=== PATIENT | male | born 1955 | race Caucasian/White ===

== ENCOUNTER 2019-03-27 10:29 | Outpatient (CLI) | payer BC ==
--- NOTE | 2019-03-27 10:43 | RAD ---
XR Chest Pa Lat STANDARD HISTORY: Dyspnea on exertion COMPARISON: 04/03/2009 FINDINGS: The heart size enlarged. There is mild prominence of the pulmonary vascularity. No lobar co nsolidation, pneumothoraces or pleural effusions are seen.
== END 2019-03-27 10:30 | disposition home or self-care (01) ==
LOC: BICRAD 10:29
PROVIDERS: ATTEND Family Medicine
DX: R06.09 Other forms of dyspnea (principal)
CPT/HCPCS: 71046

== ENCOUNTER 2019-08-24 09:36 | Outpatient (CLI) | payer MEDICARE, OTHER ==
[2019-08-24 14:52] LABS: #Eosinphils 0.2 thou/uL (0.0-0.7); #Lymphocytes 1.3 thou/uL (1.20-3.40); #Monocytes 0.7 thou/uL (0.11-0.59); #Neutrophils 7.5 thou/uL (1.40-6.50); %Basophils 0.4 % (0.0-1.0); %Eosinophils 2.1 % (0.0-10.0); %Lymphocytes 13.6 % (21.0-51.0); %Neutrophils 76.9 % (42.0-75.0); Hemoglobin 15.8 g/dL (14.0-18.0); Mean Corpuscular Hemoglobin 26.5 pg (27.0-31.0); Mean Corpuscular Volume 82.8 fL (78.0-98.0); Mean Platelet Volume 7.9 fL (7.4-10.4); Platelet Count 204 thou/uL (130-400); RBC Distribution Width 16.4 % (11.5-14.5); Red Blood Cell (RBC) Count 5.95 mill/uL (4.70-6.10); White Blood Cell (WBC) Count 9.8 thou/uL (4.8-10.8)
[2019-08-24 15:11] LABS: Anion Gap 13 mmol/L (10-20); BUN (Urea Nitrogen) 15 mg/dL (8.4-25.7); Calc. Creatinine Clearance 0 mL/min (70-130); Calcium 9.5 mg/dL (7.8-10.44); Carbon Dioxide 28 mmol/L (23-31); Chloride 103 mmol/L (98-107); Estimated GFR-MDRD 56; Glucose 131 mg/dL (80-115); Potassium 4.1 mmol/L (3.5-5.1); Sodium 140 mmol/L (136-145)
[2019-08-25 11:10] LABS: SARS-CoV-2 MS2 Positive; SARS-CoV-2 N Gene Negative; SARS-CoV-2 S Gene Negative; SARS-CoV-2 orf1ab Negative
== END 2019-08-24 09:37 | disposition home or self-care (01) ==
LOC: LABBT 09:36
PROVIDERS: ATTEND Internal Medicine Cardiovascular Disease
DX: Z01.812 Encounter for preprocedural laboratory examination (principal); Z11.59 Encounter for screening for other viral diseases; I48.91 Unspecified atrial fibrillation
CPT/HCPCS: 80048; 85025; U0003; 87635

== ENCOUNTER 2019-08-27 05:55 | Day surgery (SDC) | payer MEDICARE ==
[2019-08-24 14:16] VITALS: BMI 62.6
[2019-08-27] MEDS ORDERED: Ketamine 50 MG/ML (10ML VIAL) ONE (07:17)
--- NOTE | 2019-08-27 09:25 | OP ---
DATE OF PROCEDURE: 08/27/2019 PREOPERATIVE DIAGNOSIS: Atrial fibrillation. POSTOPERATIVE DIAGNOSIS: Sinus rhythm. PROCEDURE PERFORMED: Synchronized cardioversion. COMPLICATIONS: None. ANESTHESIA: Conscious sedation was performed with propofol. DESCRIPTION OF PROCEDURE: The patient was consented to the procedure. Conscious sedation was performed with propofol. The patient underwent successful synchronized cardioversion x3 at 150, 200, and 250 joules. After 250-joule synchronized cardioversion, successful cardioversion noted. IMPRESSION: Successful synchronized cardioversion. Job ID: [id number]
[2019-08-27] MEDS ORDERED: PROPOFOL 200 MG/20 ML VIAL ONE (12:34)
== END 2019-08-27 09:59 | disposition home or self-care (01) ==
LOC: CCL 05:55
PROVIDERS: ATTEND Internal Medicine Cardiovascular Disease
PROC: 5A2204Z Restoration of Cardiac Rhythm, Single (ICD-10-PCS; principal; 2019-08-27)
DX: I48.19 Other persistent atrial fibrillation (principal); I42.9 Cardiomyopathy, unspecified; I10 Essential (primary) hypertension; E11.9 Type 2 diabetes mellitus without complications; G47.33 Obstructive sleep apnea (adult) (pediatric); Z79.01 Long term (current) use of anticoagulants; Z79.84 Long term (current) use of oral hypoglycemic drugs; Z79.899 Other long term (current) drug therapy; Z88.1 Allergy status to other antibiotic agents; Z88.8 Allergy status to other drugs, medicaments and biological substances
CPT/HCPCS: 92960; J2704

== ENCOUNTER 2020-11-12 14:21 | Inpatient (IN) | payer MEDICARE ==
[~2020-11-12 14:21] MED LIST: Iopamidol-370 76% 500 ML 1 ML ONE
[2020-11-12] MEDS ORDERED: Acetaminophen 500 MG TAB ONE (15:00)
[2020-11-12 15:02] LABS: #Eosinphils 0.2 thou/uL (0.0-0.7); #Lymphocytes 0.6 thou/uL (1.20-3.40); #Monocytes 0.5 thou/uL (0.11-0.59); #Neutrophils 5.3 thou/uL (1.40-6.50); %Basophils 0.2 % (0.0-1.0); %Eosinophils 3.3 % (0.0-10.0); %Lymphocytes 8.8 % (21.0-51.0); %Neutrophils 79.8 % (42.0-75.0); Hemoglobin 13.4 g/dL (14.0-18.0); Mean Corpuscular HGB CONC 33.8 g/dL (32.0-36.0); Mean Corpuscular Hemoglobin 29.4 pg (27.0-31.0); Mean Platelet Volume 6.6 fL (7.4-10.4); Platelet Count 156 thou/uL (130-400); Red Blood Cell (RBC) Count 4.58 mill/uL (4.70-6.10); White Blood Cell (WBC) Count 6.7 thou/uL (4.8-10.8)
[2020-11-12] MEDS ORDERED: Albuterol 200 PUFF (6.7GM INHALER) ONE (15:07)
[2020-11-12 15:23] LABS: ALT (SGPT) 13 U/L (8-55); AST (SGOT) 15 U/L (5-34); Albumin 3.5 g/dL (3.4-4.8); Alkaline Phosphatase 56 U/L (40-110); Anion Gap 15 mmol/L (10-20); BUN (Urea Nitrogen) 19 mg/dL (8.4-25.7); Bilirubin, Total 0.9 mg/dL (0.2-1.2); Calc. Creatinine Clearance 0 mL/min (70-130); Calcium 9.2 mg/dL (7.8-10.44); Carbon Dioxide 27 mmol/L (23-31); Chloride 99 mmol/L (98-107); Globulin 3.8 g/dL (2.4-3.5); Glucose 136 mg/dL (80-115); Potassium 3.9 mmol/L (3.5-5.1); Protein, Total 7.3 g/dL (5.8-8.1); Sodium 137 mmol/L (136-145)
[2020-11-12 16:11] LABS: SARS-CoV-2 NAA Rapid Test DETECTED (NotDetected)
[2020-11-12] MEDS ORDERED: Ondansetron ODT 4 MG TAB PO PRN (16:12)
[2020-11-12] MEDS ORDERED: Loperamide HCl 2 MG CAP PO PRN ×2 (16:12)
[2020-11-12] MEDS ORDERED: Ondansetron PF 4 MG/2 ML Vial IVP PRN (16:12)
[2020-11-12] MEDS ORDERED: Acetaminophen 650 MG Suppository PR PRN (16:12)
[2020-11-12] MEDS ORDERED: Melatonin 3 MG TAB PO PRN (16:15)
[2020-11-12] MEDS ORDERED: Dextrose 50% Abboject 50 ML SYRINGE SLOW IVP PRN (16:16)
[2020-11-12] MEDS ORDERED: Dextrose 5% in Water 1,000 ML IV PRN (16:16)
[2020-11-12] MEDS ORDERED: HumaLOG 300 UNITS/3 ML VIAL SC PRN (16:16)
[2020-11-12] MEDS ORDERED: Sodium Chloride 0.9% 1,000 ML IV SCH (16:30)
[2020-11-12] MEDS ORDERED: REMDESIVIR 200 MG in Sodium Chloride 0.9% 250 ML 210 ML IV SCH (20:00)
[2020-11-12 20:27] VITALS: BMI 63.0
[2020-11-12] MEDS: Dexamethasone 10 MG/ML VIAL SLOW IVP SCH (22:44)
[2020-11-12] MEDS: Famotidine 20 MG TAB PO SCH (22:59)
[2020-11-12] MEDS: Apixaban 5 MG TAB PO SCH (22:59)
[2020-11-12] MEDS: cefTRIAXone\\ROCEPHIN 1 GM in Sodium Chloride 0.9% 100 ML IVPB SCH (23:00)
[2020-11-12] MEDS: Guaifenesin DM 100-10/5 ML UDCUP PO PRN (23:01)
[2020-11-12] MEDS: Acetaminophen 325 MG TAB PO PRN (23:01)
[2020-11-12] MEDS: Benzonatate 100 MG CAP PO PRN (23:01)
[2020-11-13] MEDS: Azithromycin 500 MG in Sodium Chloride 0.9% 250 ML 250 ML IVPB SCH ×2 (00:11→19:59)
[2020-11-13] MEDS: Acetaminophen 325 MG TAB PO PRN ×2 (04:22→09:35)
[2020-11-13] MEDS: Guaifenesin DM 100-10/5 ML UDCUP PO PRN (04:22)
[2020-11-13] MEDS: HumaLOG 300 UNITS/3 ML VIAL SC PRN ×3 (04:28→16:31)
[2020-11-13 06:07] LABS: #Lymphocytes 0.3 thou/uL (1.20-3.40); #Monocytes 0.2 thou/uL (0.11-0.59); #Neutrophils 5.8 thou/uL (1.40-6.50); %Basophils 0.1 % (0.0-1.0); %Eosinophils 0.6 % (0.0-10.0); %Monocytes 2.6 % (0.0-10.0); %Neutrophils 91.8 % (42.0-75.0); Hemoglobin 12.8 g/dL (14.0-18.0); Mean Corpuscular HGB CONC 33.6 g/dL (32.0-36.0); Mean Corpuscular Hemoglobin 29.3 pg (27.0-31.0); Mean Corpuscular Volume 87.1 fL (78.0-98.0); Mean Platelet Volume 6.7 fL (7.4-10.4); Platelet Count 154 thou/uL (130-400); RBC Distribution Width 13.1 % (11.5-14.5); Red Blood Cell (RBC) Count 4.36 mill/uL (4.70-6.10); White Blood Cell (WBC) Count 6.3 thou/uL (4.8-10.8)
[2020-11-13 06:32] LABS: ALT (SGPT) 12 U/L (8-55); AST (SGOT) 17 U/L (5-34); Albumin 3.4 g/dL (3.4-4.8); Alkaline Phosphatase 53 U/L (40-110); Anion Gap 12 mmol/L (10-20); BUN (Urea Nitrogen) 19 mg/dL (8.4-25.7); Bilirubin, Total 0.5 mg/dL (0.2-1.2); Calc. Creatinine Clearance 153 mL/min (70-130); Carbon Dioxide 26 mmol/L (23-31); Chloride 101 mmol/L (98-107); Globulin 3.7 g/dL (2.4-3.5); Glucose 182 mg/dL (80-115); Protein, Total 7.1 g/dL (5.8-8.1); Sodium 135 mmol/L (136-145)
[2020-11-13] MEDS: Famotidine 20 MG TAB PO SCH ×2 (07:38→19:58)
[2020-11-13] MEDS: Apixaban 5 MG TAB PO SCH ×2 (07:39→19:59)
[2020-11-13] MEDS ORDERED: Dexamethasone 10 MG/ML VIAL SLOW IVP SCH (09:00)
[2020-11-13] MEDS: Benzonatate 100 MG CAP PO PRN (09:36)
[2020-11-13] MEDS: Dexamethasone 10 MG/ML VIAL SLOW IVP SCH ×2 (09:36→19:59)
[2020-11-13] MEDS: GUAIFENESIN DM SF 5 ML UDCUP PO PRN (13:50)
[2020-11-13] MEDS: Albuterol 200 PUFF (6.7GM INHALER) INH PRN (13:51)
[2020-11-13] MEDS: cefTRIAXone\\ROCEPHIN 1 GM in Sodium Chloride 0.9% 100 ML IVPB SCH (19:57)
[2020-11-13] MEDS: REMDESIVIR 100 MG in Sodium Chloride 0.9% 250 ML 230 ML IV SCH (20:33)
[2020-11-14 06:26] LABS: #Lymphocytes 0.4 thou/uL (1.20-3.40); #Monocytes 0.3 thou/uL (0.11-0.59); #Neutrophils 9.2 thou/uL (1.40-6.50); %Basophils 0.4 % (0.0-1.0); %Eosinophils 0.1 % (0.0-10.0); %Lymphocytes 3.6 % (21.0-51.0); %Monocytes 2.9 % (0.0-10.0); %Neutrophils 93.1 % (42.0-75.0); Hemoglobin 13.4 g/dL (14.0-18.0); Mean Corpuscular HGB CONC 32.9 g/dL (32.0-36.0); Mean Corpuscular Hemoglobin 28.8 pg (27.0-31.0); Mean Corpuscular Volume 87.6 fL (78.0-98.0); Mean Platelet Volume 6.9 fL (7.4-10.4); Platelet Count 176 thou/uL (130-400); RBC Distribution Width 13.1 % (11.5-14.5); Red Blood Cell (RBC) Count 4.67 mill/uL (4.70-6.10); White Blood Cell (WBC) Count 9.8 thou/uL (4.8-10.8)
[2020-11-14 06:53] LABS: ALT (SGPT) 15 U/L (8-55); AST (SGOT) 20 U/L (5-34); Albumin 3.4 g/dL (3.4-4.8); Alkaline Phosphatase 50 U/L (40-110); Anion Gap 16 mmol/L (10-20); BUN (Urea Nitrogen) 28 mg/dL (8.4-25.7); Bilirubin, Total 0.3 mg/dL (0.2-1.2); Calc. Creatinine Clearance 152 mL/min (70-130); Carbon Dioxide 22 mmol/L (23-31); Chloride 103 mmol/L (98-107); Globulin 3.7 g/dL (2.4-3.5); Glucose 181 mg/dL (80-115); Potassium 3.9 mmol/L (3.5-5.1); Protein, Total 7.1 g/dL (5.8-8.1); Sodium 137 mmol/L (136-145)
[2020-11-14] MEDS ORDERED: Levothyroxine Sodium 75 MCG TAB PO SCH (08:15)
[2020-11-14] MEDS: Famotidine 20 MG TAB PO SCH ×2 (09:51→20:10)
[2020-11-14] MEDS: Amiodarone 200 MG TAB PO SCH (09:51)
[2020-11-14] MEDS: Empagliflozin 25 MG TAB PO SCH (09:51)
[2020-11-14] MEDS: Spironolactone 25 MG TAB PO SCH (09:51)
[2020-11-14] MEDS: Apixaban 5 MG TAB PO SCH ×2 (09:51→20:09)
[2020-11-14] MEDS: Dexamethasone 10 MG/ML VIAL SLOW IVP SCH ×2 (09:52→20:09)
[2020-11-14] MEDS: Chlorthalidone 25 MG TAB PO SCH (09:52)
[2020-11-14] MEDS: Benzonatate 100 MG CAP PO PRN (10:54)
[2020-11-14] MEDS: Acetaminophen 325 MG TAB PO PRN (10:54)
[2020-11-14] MEDS: Albuterol 200 PUFF (6.7GM INHALER) INH PRN (10:55)
[2020-11-14] MEDS: HumaLOG 300 UNITS/3 ML VIAL SC PRN ×2 (11:01→15:30)
[2020-11-14] MEDS: GUAIFENESIN DM SF 5 ML UDCUP PO PRN (12:37)
[2020-11-14] MEDS: Terazosin HCl 5 MG CAP PO SCH (20:09)
[2020-11-14] MEDS: Amlodipine 10 MG TAB PO SCH (20:10)
[2020-11-14] MEDS: cefTRIAXone\\ROCEPHIN 1 GM in Sodium Chloride 0.9% 100 ML IVPB SCH (20:10)
[2020-11-14] MEDS: Azithromycin 500 MG in Sodium Chloride 0.9% 250 ML 250 ML IVPB SCH (20:10)
[2020-11-14] MEDS: REMDESIVIR 100 MG in Sodium Chloride 0.9% 250 ML 230 ML IV SCH (20:16)
[2020-11-15] MEDS: Levothyroxine Sodium 75 MCG TAB PO SCH (05:01)
[2020-11-15 06:35] LABS: #Basophils 0.1 thou/uL (0.0-0.2); #Lymphocytes 0.3 thou/uL (1.20-3.40); #Monocytes 0.3 thou/uL (0.11-0.59); #Neutrophils 8.9 thou/uL (1.40-6.50); %Basophils 0.7 % (0.0-1.0); %Eosinophils 0.2 % (0.0-10.0); %Lymphocytes 2.9 % (21.0-51.0); %Monocytes 3.6 % (0.0-10.0); %Neutrophils 92.7 % (42.0-75.0); Hemoglobin 13.8 g/dL (14.0-18.0); Mean Corpuscular HGB CONC 33.1 g/dL (32.0-36.0); Mean Corpuscular Volume 87.7 fL (78.0-98.0); Mean Platelet Volume 7.2 fL (7.4-10.4); Platelet Count 202 thou/uL (130-400); RBC Distribution Width 13.4 % (11.5-14.5); Red Blood Cell (RBC) Count 4.75 mill/uL (4.70-6.10); White Blood Cell (WBC) Count 9.6 thou/uL (4.8-10.8)
[2020-11-15 06:58] LABS: ALT (SGPT) 15 U/L (8-55); AST (SGOT) 25 U/L (5-34); Albumin 3.5 g/dL (3.4-4.8); Alkaline Phosphatase 55 U/L (40-110); Anion Gap 14 mmol/L (10-20); BUN (Urea Nitrogen) 33 mg/dL (8.4-25.7); Bilirubin, Total 0.4 mg/dL (0.2-1.2); Calc. Creatinine Clearance 138 mL/min (70-130); Calcium 8.8 mg/dL (7.8-10.44); Carbon Dioxide 28 mmol/L (23-31); Chloride 102 mmol/L (98-107); Globulin 3.2 g/dL (2.4-3.5); Glucose 174 mg/dL (80-115); Potassium 4.2 mmol/L (3.5-5.1); Protein, Total 6.7 g/dL (5.8-8.1); Sodium 140 mmol/L (136-145)
[2020-11-15] MEDS: Spironolactone 25 MG TAB PO SCH (08:57)
[2020-11-15] MEDS: Empagliflozin 25 MG TAB PO SCH (08:57)
[2020-11-15] MEDS: Chlorthalidone 25 MG TAB PO SCH (08:57)
[2020-11-15] MEDS: Apixaban 5 MG TAB PO SCH ×2 (08:57→20:03)
[2020-11-15] MEDS: Amiodarone 200 MG TAB PO SCH (08:57)
[2020-11-15] MEDS: Famotidine 20 MG TAB PO SCH ×2 (08:57→20:03)
[2020-11-15] MEDS: Dexamethasone 10 MG/ML VIAL SLOW IVP SCH ×2 (08:59→20:06)
[2020-11-15] MEDS: Lantus 1000 UNITS/10 ML VIAL SC SCH (09:00)
[2020-11-15] MEDS: HumaLOG 300 UNITS/3 ML VIAL SC PRN ×2 (12:30→17:02)
[2020-11-15 16:22] LABS: Hemoglobin A1c 6.6 % (4.0-6.0)
[2020-11-15] MEDS: Terazosin HCl 5 MG CAP PO SCH (20:03)
[2020-11-15] MEDS: cefTRIAXone\\ROCEPHIN 1 GM in Sodium Chloride 0.9% 100 ML IVPB SCH (20:03)
[2020-11-15] MEDS: Amlodipine 10 MG TAB PO SCH (20:03)
[2020-11-15] MEDS: Azithromycin 250 MG TAB PO SCH (20:03)
[2020-11-15] MEDS: REMDESIVIR 100 MG in Sodium Chloride 0.9% 250 ML 230 ML IV SCH (21:07)
[2020-11-16] MEDS: Levothyroxine Sodium 75 MCG TAB PO SCH (04:46)
[2020-11-16 06:21] LABS: #Lymphocytes 0.7 thou/uL (1.20-3.40); #Monocytes 0.3 thou/uL (0.11-0.59); #Neutrophils 9.6 thou/uL (1.40-6.50); %Eosinophils 0.1 % (0.0-10.0); %Lymphocytes 6.2 % (21.0-51.0); %Monocytes 2.6 % (0.0-10.0); %Neutrophils 91.1 % (42.0-75.0); Hemoglobin 14.6 g/dL (14.0-18.0); Mean Corpuscular HGB CONC 32.4 g/dL (32.0-36.0); Mean Corpuscular Hemoglobin 28.3 pg (27.0-31.0); Mean Corpuscular Volume 87.2 fL (78.0-98.0); Mean Platelet Volume 6.5 fL (7.4-10.4); Platelet Count 283 thou/uL (130-400); RBC Distribution Width 13.2 % (11.5-14.5); Red Blood Cell (RBC) Count 5.16 mill/uL (4.70-6.10); White Blood Cell (WBC) Count 10.5 thou/uL (4.8-10.8)
[2020-11-16 06:42] LABS: ALT (SGPT) 24 U/L (8-55); AST (SGOT) 29 U/L (5-34); Albumin 3.9 g/dL (3.4-4.8); Alkaline Phosphatase 57 U/L (40-110); Anion Gap 17 mmol/L (10-20); BUN (Urea Nitrogen) 33 mg/dL (8.4-25.7); Bilirubin, Total 0.5 mg/dL (0.2-1.2); Calc. Creatinine Clearance 137 mL/min (70-130); Calcium 9.7 mg/dL (7.8-10.44); Carbon Dioxide 26 mmol/L (23-31); Chloride 99 mmol/L (98-107); Globulin 4.3 g/dL (2.4-3.5); Glucose 189 mg/dL (80-115); Potassium 3.9 mmol/L (3.5-5.1); Protein, Total 8.2 g/dL (5.8-8.1); Sodium 138 mmol/L (136-145)
[2020-11-16] MEDS: Amiodarone 200 MG TAB PO SCH (08:29)
[2020-11-16] MEDS: Empagliflozin 25 MG TAB PO SCH (08:30)
[2020-11-16] MEDS: Famotidine 20 MG TAB PO SCH ×2 (08:30→19:58)
[2020-11-16] MEDS: Chlorthalidone 25 MG TAB PO SCH (08:30)
[2020-11-16] MEDS: Dexamethasone 10 MG/ML VIAL SLOW IVP SCH ×2 (08:30→19:58)
[2020-11-16] MEDS: Apixaban 5 MG TAB PO SCH ×2 (08:30→19:58)
[2020-11-16] MEDS: Lantus 1000 UNITS/10 ML VIAL SC SCH (08:30)
[2020-11-16] MEDS: Spironolactone 25 MG TAB PO SCH (08:31)
[2020-11-16] MEDS: HumaLOG 300 UNITS/3 ML VIAL SC PRN ×2 (11:24→16:35)
[2020-11-16] MEDS: Acetaminophen 325 MG TAB PO PRN ×2 (11:31→23:40)
[2020-11-16] MEDS: cefTRIAXone\\ROCEPHIN 1 GM in Sodium Chloride 0.9% 100 ML IVPB SCH (19:56)
[2020-11-16] MEDS: Terazosin HCl 5 MG CAP PO SCH (19:56)
[2020-11-16] MEDS: Amlodipine 10 MG TAB PO SCH (19:57)
[2020-11-16] MEDS: Azithromycin 250 MG TAB PO SCH (19:57)
[2020-11-16] MEDS: REMDESIVIR 100 MG in Sodium Chloride 0.9% 250 ML 230 ML IV SCH (21:44)
[2020-11-17] MEDS: HumaLOG 300 UNITS/3 ML VIAL SC PRN ×3 (05:33→17:04)
[2020-11-17] MEDS: Levothyroxine Sodium 75 MCG TAB PO SCH (05:33)
[2020-11-17] MEDS: Chlorthalidone 25 MG TAB PO SCH (08:36)
[2020-11-17] MEDS: Dexamethasone 10 MG/ML VIAL SLOW IVP SCH ×2 (08:37→23:16)
[2020-11-17] MEDS: Famotidine 20 MG TAB PO SCH ×2 (08:37→21:04)
[2020-11-17] MEDS: Apixaban 5 MG TAB PO SCH ×2 (08:37→21:04)
[2020-11-17] MEDS: Empagliflozin 25 MG TAB PO SCH (08:37)
[2020-11-17] MEDS: Spironolactone 25 MG TAB PO SCH (08:37)
[2020-11-17] MEDS: Amiodarone 200 MG TAB PO SCH (08:37)
[2020-11-17] MEDS: Lantus 1000 UNITS/10 ML VIAL SC SCH (08:38)
[2020-11-17] MEDS: cefTRIAXone\\ROCEPHIN 1 GM in Sodium Chloride 0.9% 100 ML IVPB SCH (21:03)
[2020-11-17] MEDS: Terazosin HCl 5 MG CAP PO SCH (21:04)
[2020-11-17] MEDS: Amlodipine 10 MG TAB PO SCH (21:04)
[2020-11-17] MEDS: Azithromycin 250 MG TAB PO SCH (21:07)
[2020-11-18] MEDS: Amlodipine 10 MG TAB PO SCH (01:02)
[2020-11-18] MEDS: HumaLOG 300 UNITS/3 ML VIAL SC PRN ×2 (05:36→12:14)
[2020-11-18] MEDS: Levothyroxine Sodium 75 MCG TAB PO SCH (05:37)
[2020-11-18] MEDS: Famotidine 20 MG TAB PO SCH (08:37)
[2020-11-18] MEDS: Spironolactone 25 MG TAB PO SCH (08:37)
[2020-11-18] MEDS: Apixaban 5 MG TAB PO SCH (08:37)
[2020-11-18] MEDS: Amiodarone 200 MG TAB PO SCH (08:37)
[2020-11-18] MEDS: Empagliflozin 25 MG TAB PO SCH (08:37)
[2020-11-18] MEDS: Dexamethasone 10 MG/ML VIAL SLOW IVP SCH (08:37)
[2020-11-18] MEDS: Chlorthalidone 25 MG TAB PO SCH (08:38)
[2020-11-18] MEDS: Lantus 1000 UNITS/10 ML VIAL SC SCH (08:39)
[2020-11-18 08:54] VITALS: TEMP 97.8
[2020-11-18 14:30] VITALS: BP 126/72
[2020-11-19] MEDS ORDERED: Dexamethasone 4 MG TAB PO SCH (08:00)
[2020-11-19] MEDS ORDERED: Polyethylene Glycol 3350 17 GM Packet PO SCH (09:00)
== END 2020-11-18 15:49 | disposition home or self-care (01) | DRG 177 ==
LOC: ERS 14:21 → ERHOLD 16:03 → T4-A 19:41
PROVIDERS: ADMIT Internal Medicine; ATTEND Student in an Organized Health Care Education/Training Program
PROC: 8E0ZXY6 Isolation (ICD-10-PCS; principal; 2020-11-12)
PROC: XW033E5 Introduction of Remdesivir Anti-infective into Peripheral Vein, Percutaneous Approach, New Technology Group 5 (ICD-10-PCS; 2020-11-12)
DX: U07.1 COVID-19 (principal); J12.82 Pneumonia due to coronavirus disease 2019; J96.01 Acute respiratory failure with hypoxia; N17.9 Acute kidney failure, unspecified; Z68.44 Body mass index [BMI] 60.0-69.9, adult; I48.20 Chronic atrial fibrillation, unspecified; E66.01 Morbid (severe) obesity due to excess calories; E78.5 Hyperlipidemia, unspecified; G47.33 Obstructive sleep apnea (adult) (pediatric); Z79.01 Long term (current) use of anticoagulants; E11.22 Type 2 diabetes mellitus with diabetic chronic kidney disease; N18.30 Chronic kidney disease, stage 3 unspecified; I12.9 Hypertensive chronic kidney disease with stage 1 through stage 4 chronic kidney disease, or unspecified chronic kidney disease; E11.65 Type 2 diabetes mellitus with hyperglycemia; N40.0 Benign prostatic hyperplasia without lower urinary tract symptoms; Z88.8 Allergy status to other drugs, medicaments and biological substances; Z88.1 Allergy status to other antibiotic agents
CPT/HCPCS: 0240U; 36415; 36416; 71045; 71275; 80053; 82728; 83036; 83880; 84484; 85025; 85379; 86140; 93005; 94664; J0456; J0696; J1100; J1815; J3490; J7050; Q9967

== ENCOUNTER 2021-10-13 12:18 | Emergency (ER) | payer MEDICARE | END 2021-10-13 13:24 | disposition home or self-care (01) | LOC: ERS 12:18 | DX: M62.830 Muscle spasm of back (principal); E11.9 Type 2 diabetes mellitus without complications; I10 Essential (primary) hypertension; E66.9 Obesity, unspecified | CPT/HCPCS: 99283 ==

== ENCOUNTER 2022-08-07 11:47 | Outpatient (CLI) | payer MEDICARE | END 2022-08-07 11:48 | disposition home or self-care (01) | LOC: BICCT 11:47 | PROVIDERS: ATTEND Urology | DX: N18.32 Chronic kidney disease, stage 3b (principal); N20.0 Calculus of kidney | CPT/HCPCS: 74176 ==

== ENCOUNTER 2023-05-11 22:08 | Inpatient (IN) | payer MEDICARE ==
[2023-05-11] MEDS ORDERED: Morphine 4 MG/ML VIAL ONE (22:54)
[2023-05-11] MEDS ORDERED: Ondansetron PF 4 MG/2 ML Vial ONE (22:55)
[2023-05-11 23:06] LABS: #Eosinphils 0.4 thou/uL (0.0-0.7); #Monocytes 0.4 thou/uL (0.11-0.59); #Neutrophils 5.5 thou/uL (1.40-6.50); %Basophils 0.6 % (0.0-1.0); %Eosinophils 4.9 % (0.0-10.0); %Lymphocytes 10.7 % (21.0-51.0); %Monocytes 5.8 % (0.0-10.0); %Neutrophils 77.9 % (42.0-75.0); Hematocrit 37.8 % (42.0-52.0); Hemoglobin 11.6 g/dL (14.0-18.0); Mean Corpuscular HGB CONC 30.7 g/dL (32.0-36.0); Mean Corpuscular Hemoglobin 24.6 pg (27.0-31.0); Mean Corpuscular Volume 80.3 fl (78.0-98.0); Mean Platelet Volume 8.7 fL (7.4-10.4); Platelet Count 199 10x3/uL (130-400); RBC Distribution Width 15.6 % (11.5-14.5); Red Blood Cell (RBC) Count 4.71 mill/uL (4.70-6.10); White Blood Cell (WBC) Count 7.1 10x3/uL (4.8-10.8)
[2023-05-11 23:58] LABS: ALT (SGPT) 9 U/L (8-55); AST (SGOT) 20 U/L (5-34); Alkaline Phosphatase 92 U/L (40-110); Anion Gap 15 mmol/L (10-20); BUN (Urea Nitrogen) 16 mg/dL (8.4-25.7); Bilirubin, Total 0.6 mg/dL (0.2-1.2); Calc. Creatinine Clearance 0 mL/min (70-130); Calcium 9.2 mg/dL (7.8-10.44); Carbon Dioxide 23 mmol/L (23-31); Chloride 101 mmol/L (98-107); Estimated GFR 47; Globulin 3.8 g/dL (2.4-3.5); Glucose 130 mg/dL (80-115); Potassium 4.9 mmol/L (3.5-5.1); Protein, Total 7.8 g/dL (5.8-8.1); Sodium 134 mmol/L (136-145)
[2023-05-12] MEDS ORDERED: Morphine 4 MG/ML VIAL ONE (02:23)
[2023-05-12] MEDS ORDERED: Ondansetron PF 4 MG/2 ML Vial ONE (02:24)
[2023-05-12 03:42] LABS: Bacteria/HPF None Seen HPF (None Seen); Bilirubin Negative (Negative); Blood, Urine Negative (Negative); CAUTI Indications for Culture Pelvic or flank pain; Clarity Clear (Clear); Glucose, Urine (Dipstick) Greater than 1000 mg/dL (Negative); Ketone, Urine Negative (Negative); Leukocyte Negative Leu/uL (Negative); Nitrite Negative (Negative); Protein, Urine (Dipstick) Negative (Neg-Trace); RBC/HPF 0-3 HPF (0-3); Specific Gravity, Urine 1.025 (1.002-1.036); Squamous Epithelial None Seen HPF (0-3); Urobilinogen Normal mg/dL (Less than 2); WBC/HPF 0-3 HPF (0-3)
[2023-05-12 03:44] LABS: Urine Culture Reflex No No
[2023-05-12] MEDS ORDERED: Glucagon 1 MG/ML KIT IM PRN (07:53)
[2023-05-12] MEDS ORDERED: Dextrose 5% in Water 1,000 ML IV PRN (07:53)
[2023-05-12] MEDS ORDERED: Dextrose 50% Abboject 50 ML SYRINGE SLOW IVP PRN (07:53)
[2023-05-12] MEDS ORDERED: Insulin Regular 300 UNITS/3 ML VIAL SC PRN ×2 (07:53)
[2023-05-12] MEDS: oxyCODONE 5 MG TAB PO PRN (08:30)
[2023-05-12 09:42] LABS: INR-International Normal Ratio 1.2; PTT 37.9 sec (22.9-36.1); Prothrombin Time 15.6 sec (12.0-14.7)
[2023-05-12 09:45] LABS: D-Dimer Test Less than 0.27 mcg/mL (0.27-0.43)
[2023-05-12 09:49] LABS: Troponin I Less than 0.010 ng/mL (< 0.028)
[2023-05-12 11:14] LABS: Free T4 (Free Thyroxine) 1.02 ng/dL (0.70-1.48)
[2023-05-12] MEDS: Enoxaparin 100 MG (1 mL) SYRINGE SC SCH ×2 (12:52→13:05)
[2023-05-12] MEDS: Enoxaparin 80 MG (0.8 mL) SYRINGE SC SCH ×3 (12:52→13:10)
[2023-05-12] MEDS: Acetaminophen 325 MG TAB PO SCH (12:53)
[2023-05-12] MEDS: Sodium Chloride 0.9% 1,000 ML IV SCH ×2 (15:15→22:02)
[2023-05-12 17:08] LABS: SARS-CoV-2 NAA Rapid Test Not Detected (NotDetected)
[2023-05-12] MEDS: Dexamethasone 4 mg/ml Vial SLOW IVP SCH (18:37)
[2023-05-12 19:14] LABS: Troponin I Less than 0.010 ng/mL (< 0.028)
[2023-05-12] MEDS: Tamsulosin HCl 0.4 MG CAP PO SCH (22:00)
[2023-05-12] MEDS: hydrOXYzine 25 MG TAB PO SCH (22:00)
[2023-05-13 04:17] LABS: #Monocytes 0.1 thou/uL (0.11-0.59); #Neutrophils 6.6 thou/uL (1.40-6.50); %Basophils 0.4 % (0.0-1.0); %Monocytes 1.3 % (0.0-10.0); %Neutrophils 91.9 % (42.0-75.0); Hematocrit 38.8 % (42.0-52.0); Hemoglobin 11.3 g/dL (14.0-18.0); Mean Corpuscular HGB CONC 29.1 g/dL (32.0-36.0); Mean Corpuscular Hemoglobin 23.9 pg (27.0-31.0); Mean Platelet Volume 8.9 fL (7.4-10.4); Platelet Count 180 10x3/uL (130-400); RBC Distribution Width 15.3 % (11.5-14.5); Red Blood Cell (RBC) Count 4.73 mill/uL (4.70-6.10); White Blood Cell (WBC) Count 7.2 10x3/uL (4.8-10.8)
[2023-05-13 04:35] LABS: ALT (SGPT) 7 U/L (8-55); AST (SGOT) 11 U/L (5-34); Albumin 3.7 g/dL (3.4-4.8); Alkaline Phosphatase 87 U/L (40-110); Anion Gap 13 mmol/L (10-20); BUN (Urea Nitrogen) 19 mg/dL (8.4-25.7); Bilirubin, Direct 0.3 mg/dL (0.1-0.3); Bilirubin, Total 0.8 mg/dL (0.2-1.2); Calc. Creatinine Clearance 110 mL/min (70-130); Calcium 9.2 mg/dL (7.8-10.44); Carbon Dioxide 24 mmol/L (23-31); Cardiac Risk 2.5 (Less than 4.5); Chloride 103 mmol/L (98-107); Cholesterol 103 mg/dl (< 200 Desired); Estimated GFR 44; Glucose 126 mg/dL (80-115); HDL Cholesterol 41 mg/dL (>60 Neg Risk); LDL Cholesterol, Calculated 47 mg/dL; Potassium 4.9 mmol/L (3.5-5.1); Sodium 135 mmol/L (136-145); Triglycerides 74 mg/dL (Less than 150)
[2023-05-13] MEDS: Amiodarone 200 MG TAB PO SCH (09:59)
[2023-05-13] MEDS ORDERED: Sodium Bicarbonate 2.5 MEQ/5 ML SDV ONE (10:19)
[2023-05-13] MEDS ORDERED: Iopamidol 0 ML ONE ×2 (10:20→12:07)
[2023-05-13] MEDS ORDERED: Iopamidol 15 ML ONE (12:11)
[2023-05-13] MEDS: Terazosin HCl 5 MG CAP PO SCH (22:08)
[2023-05-13] MEDS: Amlodipine 10 MG TAB PO SCH (22:09)
[2023-05-14 05:17] LABS: #Monocytes 0.2 thou/uL (0.11-0.59); #Neutrophils 9.2 thou/uL (1.40-6.50); %Basophils 0.1 % (0.0-1.0); %Lymphocytes 3.6 % (21.0-51.0); %Monocytes 2.1 % (0.0-10.0); %Neutrophils 93.7 % (42.0-75.0); Hematocrit 35.9 % (42.0-52.0); Hemoglobin 10.7 g/dL (14.0-18.0); Mean Corpuscular HGB CONC 29.8 g/dL (32.0-36.0); Mean Corpuscular Volume 80.7 fl (78.0-98.0); Mean Platelet Volume 9.2 fL (7.4-10.4); Platelet Count 203 10x3/uL (130-400); RBC Distribution Width 15.3 % (11.5-14.5); Red Blood Cell (RBC) Count 4.45 mill/uL (4.70-6.10); White Blood Cell (WBC) Count 9.8 10x3/uL (4.8-10.8)
[2023-05-14 05:39] LABS: Anion Gap 12 mmol/L (10-20); BUN (Urea Nitrogen) 32 mg/dL (8.4-25.7); Calc. Creatinine Clearance 115 mL/min (70-130); Calcium 9.1 mg/dL (7.8-10.44); Carbon Dioxide 25 mmol/L (23-31); Chloride 103 mmol/L (98-107); Estimated GFR 48; Glucose 142 mg/dL (80-115); Magnesium 1.9 mg/dL (1.6-2.6); Sodium 135 mmol/L (136-145)
[2023-05-14] MEDS: Spironolactone 25 MG TAB PO SCH (08:29)
[2023-05-14] MEDS: Empagliflozin 25 MG TAB PO SCH (08:29)
[2023-05-14] MEDS ORDERED: Iopamidol 0 ML ONE (09:37)
[2023-05-14] MEDS ORDERED: Sodium Bicarbonate 2.5 MEQ/5 ML SDV ONE (09:37)
[2023-05-14] MEDS: Senokot S 8.6-50 MG TAB PO PRN (21:35)
[2023-05-15 04:47] LABS: #Monocytes 0.3 thou/uL (0.11-0.59); #Neutrophils 9.7 thou/uL (1.40-6.50); %Basophils 0.1 % (0.0-1.0); %Lymphocytes 3.4 % (21.0-51.0); %Monocytes 2.9 % (0.0-10.0); %Neutrophils 92.9 % (42.0-75.0); Hematocrit 34.9 % (42.0-52.0); Hemoglobin 10.6 g/dL (14.0-18.0); Mean Corpuscular HGB CONC 30.4 g/dL (32.0-36.0); Mean Corpuscular Hemoglobin 24.5 pg (27.0-31.0); Mean Corpuscular Volume 80.8 fl (78.0-98.0); Mean Platelet Volume 9.2 fL (7.4-10.4); Platelet Count 199 10x3/uL (130-400); RBC Distribution Width 15.6 % (11.5-14.5); Red Blood Cell (RBC) Count 4.32 mill/uL (4.70-6.10); White Blood Cell (WBC) Count 10.4 10x3/uL (4.8-10.8)
[2023-05-15 05:01] LABS: Anion Gap 10 mmol/L (10-20); BUN (Urea Nitrogen) 35 mg/dL (8.4-25.7); Calc. Creatinine Clearance 130 mL/min (70-130); Calcium 9.3 mg/dL (7.8-10.44); Carbon Dioxide 26 mmol/L (23-31); Chloride 102 mmol/L (98-107); Estimated GFR 53; Glucose 145 mg/dL (80-115); Magnesium 1.9 mg/dL (1.6-2.6); Potassium 4.9 mmol/L (3.5-5.1); Sodium 133 mmol/L (136-145)
[2023-05-15] MEDS ORDERED: Polyethylene Glycol 3350 17 GM Packet PO PRN (15:47)
[2023-05-15] MEDS: Dexamethasone 4 mg/ml Vial SLOW IVP SCH (17:23)
[2023-05-15] MEDS: Amlodipine 5 MG TAB PO SCH (20:31)
[2023-05-15] MEDS: Gabapentin 100 MG CAP PO SCH (20:31)
[2023-05-15] MEDS: Senokot S 8.6-50 MG TAB PO SCH (20:31)
[2023-05-15] MEDS: Atorvastatin Calcium 10 MG TAB PO SCH (20:32)
[2023-05-15] MEDS: Apixaban 5 MG TAB PO SCH (20:32)
[2023-05-16] MEDS: Levothyroxine Sodium 88 MCG TAB PO SCH (05:24)
[2023-05-16 07:19] LABS: #Monocytes 0.4 thou/uL (0.11-0.59); #Neutrophils 9.7 thou/uL (1.40-6.50); %Lymphocytes 3.4 % (21.0-51.0); Hematocrit 36.9 % (42.0-52.0); Hemoglobin 11.1 g/dL (14.0-18.0); Mean Corpuscular HGB CONC 30.1 g/dL (32.0-36.0); Mean Corpuscular Hemoglobin 24.6 pg (27.0-31.0); Mean Corpuscular Volume 81.6 fl (78.0-98.0); Mean Platelet Volume 8.9 fL (7.4-10.4); Platelet Count 184 10x3/uL (130-400); RBC Distribution Width 15.6 % (11.5-14.5); Red Blood Cell (RBC) Count 4.52 mill/uL (4.70-6.10); White Blood Cell (WBC) Count 10.6 10x3/uL (4.8-10.8)
[2023-05-16 07:41] LABS: Anion Gap 11 mmol/L (10-20); BUN (Urea Nitrogen) 37 mg/dL (8.4-25.7); Calc. Creatinine Clearance 120 mL/min (70-130); Calcium 9.1 mg/dL (7.8-10.44); Carbon Dioxide 27 mmol/L (23-31); Chloride 102 mmol/L (98-107); Estimated GFR 51; Glucose 140 mg/dL (80-115); Potassium 4.6 mmol/L (3.5-5.1); Sodium 135 mmol/L (136-145)
[2023-05-16] MEDS: Carvedilol 6.25 MG TAB PO SCH (08:07)
[2023-05-16] MEDS ORDERED: Lactulose 20 GM (30 mL) UDCUP PO PRN (18:04)
[2023-05-16] MEDS: Lactulose 20 GM (30 mL) UDCUP PO SCH (18:30)
[2023-05-16] MEDS: Polyethylene Glycol 3350 17 GM Packet PO SCH (18:31)
[2023-05-16] MEDS: Amlodipine 10 MG TAB PO SCH (20:08)
[2023-05-17 05:25] LABS: #Monocytes 0.7 thou/uL (0.11-0.59); #Neutrophils 8.8 thou/uL (1.40-6.50); %Monocytes 6.9 % (0.0-10.0); %Neutrophils 88.7 % (42.0-75.0); Hematocrit 35.6 % (42.0-52.0); Mean Corpuscular HGB CONC 30.9 g/dL (32.0-36.0); Mean Corpuscular Hemoglobin 24.4 pg (27.0-31.0); Mean Platelet Volume 9.2 fL (7.4-10.4); Platelet Count 189 10x3/uL (130-400); RBC Distribution Width 15.6 % (11.5-14.5); Red Blood Cell (RBC) Count 4.51 mill/uL (4.70-6.10); White Blood Cell (WBC) Count 9.9 10x3/uL (4.8-10.8)
[2023-05-17 05:37] LABS: Mean Corpuscular Volume 78.9 fl (78.0-98.0)
[2023-05-17 05:51] LABS: Anion Gap 11 mmol/L (10-20); BUN (Urea Nitrogen) 37 mg/dL (8.4-25.7); Calc. Creatinine Clearance 126 mL/min (70-130); Carbon Dioxide 27 mmol/L (23-31); Chloride 102 mmol/L (98-107); Estimated GFR 54; Glucose 122 mg/dL (80-115); Potassium 4.5 mmol/L (3.5-5.1); Sodium 135 mmol/L (136-145)
[2023-05-17] MEDS: Polyethylene Glycol 3350 17 GM Packet PO SCH (07:56)
[2023-05-17 08:00] VITALS: TEMP 98.3
[2023-05-17 12:19] VITALS: BMI 63.9
[2023-05-17 17:16] VITALS: BP 152/75
== END 2023-05-17 17:40 | DRG 551 ==
LOC: ERS 22:08 → SJJU 05-12 08:16 → 2NO 05-12 15:22 → OBSVTOIN 05-13 10:14 → T4-B 05-15 21:54
PROVIDERS: ADMIT Family Medicine; ATTEND Hospitalist
DX: M48.061 Spinal stenosis, lumbar region without neurogenic claudication (principal); J96.21 Acute and chronic respiratory failure with hypoxia; I48.20 Chronic atrial fibrillation, unspecified; I13.0 Hypertensive heart and chronic kidney disease with heart failure and stage 1 through stage 4 chronic kidney disease, or unspecified chronic kidney disease; N17.9 Acute kidney failure, unspecified; Z68.44 Body mass index [BMI] 60.0-69.9, adult; I50.32 Chronic diastolic (congestive) heart failure; G83.4 Cauda equina syndrome; M48.07 Spinal stenosis, lumbosacral region; E11.22 Type 2 diabetes mellitus with diabetic chronic kidney disease; R33.9 Retention of urine, unspecified; G47.33 Obstructive sleep apnea (adult) (pediatric); E03.9 Hypothyroidism, unspecified; N28.9 Disorder of kidney and ureter, unspecified; E66.01 Morbid (severe) obesity due to excess calories; D63.1 Anemia in chronic kidney disease; N18.31 Chronic kidney disease, stage 3a; Z90.49 Acquired absence of other specified parts of digestive tract; Z88.8 Allergy status to other drugs, medicaments and biological substances; Z88.1 Allergy status to other antibiotic agents; K59.00 Constipation, unspecified; Z79.899 Other long term (current) drug therapy; Z11.52 Encounter for screening for COVID-19
CPT/HCPCS: 0241U; 36415; 36416; 51702; 71045; 72070; 72100; 74176; 76770; 80048; 80053; 80061; 80076; 81001; 83036; 83735; 83880; 84439; 84443; 84481; 84484; 85025; 85379; 85610; 85730; 86850; 86900; 86901; 93005; 93010; 93306; 93970; 94660; 94760; 96372; 96374; 96375; 96376; G0378; J1100; J1650; J2270; J2405; J7050; Q9967

== ENCOUNTER 2023-12-27 12:27 | Inpatient (IN) | payer MEDICARE ==
[2023-12-27 13:00] LABS: #Basophils 0.04 10x3/uL (0.0-0.2); %Basophils 0.5 % (0.0-1.0); %Eosinophils 2.4 % (0.0-10.0); %Lymphocytes 7.4 % (21.0-51.0); %Monocytes 8.1 % (0.0-10.0); %Neutrophils 81.3 % (42.0-75.0); Hematocrit 37.3 % (42.0-52.0); Hemoglobin 10.7 g/dL (14.0-18.0); Mean Corpuscular HGB CONC 28.7 g/dL (32.0-36.0); Mean Corpuscular Hemoglobin 23.3 pg (27.0-31.0); Mean Corpuscular Volume 81.1 fL (78.0-98.0); Mean Platelet Volume 8.2 fL (7.4-10.4); Platelet Count 180 10x3/uL (130-400); RBC Distribution Width 17.9 % (11.5-14.5)
[2023-12-27 13:19] LABS: ALT (SGPT) 12 U/L (8-55); AST (SGOT) 11 U/L (5-34); Alkaline Phosphatase 89 U/L (40-110); Anion Gap 9 mmol/L (10-20); BUN (Urea Nitrogen) 30 mg/dL (8.4-25.7); Bilirubin, Total 0.6 mg/dL (0.2-1.2); Calc. Creatinine Clearance 0 mL/min (70-130); Calcium 9.3 mg/dL (7.8-10.44); Carbon Dioxide 33 mmol/L (23-31); Chloride 99 mmol/L (98-107); Estimated GFR 50; Globulin 4.1 g/dL (2.4-3.5); Glucose 132 mg/dL (80-115); Potassium 4.1 mmol/L (3.5-5.1); Protein, Total 7.1 g/dL (5.8-8.1); Sodium 137 mmol/L (136-145)
[2023-12-27 13:20] LABS: Macrocytosis SLIGHT = 6-15 cells HPF (0-5); Platelet Adequacy Comment Platelets Normal; Polychromasia SLIGHT = 2-3 cells HPF (0-2); Tear Drops SLIGHT = 2-5 cells HPF (0-1)
[2023-12-27 13:22] LABS: Troponin I 0.024 ng/mL (< 0.028)
[2023-12-27] MEDS ORDERED: Furosemide 40 MG (4 mL) VIAL ONE (13:38)
[2023-12-27] MEDS ORDERED: Nitroglycerin 2% Ointment 1 INCH/1 GM Packet ONE (13:38)
[2023-12-27] MEDS ORDERED: Acetaminophen 325 MG TAB PO PRN (16:24)
[2023-12-27] MEDS ORDERED: Dextrose 50% Abboject 50 ML SYRINGE SLOW IVP PRN (16:24)
[2023-12-27] MEDS ORDERED: Guaifenesin DM 100-10/5 ML UDCUP PO PRN (16:24)
[2023-12-27] MEDS ORDERED: Insulin Lispro 100 UNIT/ML 10 ML VIAL SC PRN (16:24)
[2023-12-27] MEDS ORDERED: Senokot S 8.6-50 MG TAB PO PRN (16:24)
[2023-12-27] MEDS ORDERED: Dextrose 5% in Water 1,000 ML IV PRN (16:24)
[2023-12-27] MEDS ORDERED: Ondansetron PF 4 MG/2 ML Vial IVP PRN (16:24)
[2023-12-27] MEDS ORDERED: Glucagon 1 MG/ML KIT IM PRN (16:24)
[2023-12-27] MEDS ORDERED: Calcium Carbonate 500 MG ChewTAB PO PRN (16:24)
[2023-12-27 17:15] LABS: Bilirubin Negative (Negative); Blood, Urine Negative (Negative); CAUTI Indications for Culture Dysuria,urgency,freq; Clarity Clear (Clear); Glucose, Urine (Dipstick) Greater than 1000 mg/dL (Negative); Ketone, Urine Negative (Negative); Leukocyte Negative Leu/uL (Negative); Nitrite Negative (Negative); Protein, Urine (Dipstick) Negative (Neg-Trace); RBC/HPF 0-3 HPF (0-3); Specific Gravity, Urine 1.005 (1.002-1.036); Squamous Epithelial 0-3 HPF (0-3); Urobilinogen Normal mg/dL (Less than 2); WBC/HPF 0-3 HPF (0-3)
[2023-12-27 17:23] LABS: Bacteria/HPF 1+ HPF (None Seen)
[2023-12-27 17:25] LABS: Urine Culture Reflex No No
[2023-12-27 19:07] VITALS: BMI 65.5
[2023-12-27 19:43] LABS: Troponin I 0.022 ng/mL (< 0.028)
[2023-12-27] MEDS: Apixaban 5 MG TAB PO SCH (20:11)
[2023-12-27] MEDS: Carvedilol 3.125 MG TAB PO SCH (20:11)
[2023-12-27] MEDS: Atorvastatin Calcium 10 MG TAB PO SCH (20:11)
[2023-12-28 04:27] LABS: #Basophils 0.04 10x3/uL (0.0-0.2); %Basophils 0.5 % (0.0-1.0); %Eosinophils 2.5 % (0.0-10.0); %Lymphocytes 6.5 % (21.0-51.0); %Monocytes 7.9 % (0.0-10.0); Hematocrit 35.9 % (42.0-52.0); Hemoglobin 10.2 g/dL (14.0-18.0); Mean Corpuscular HGB CONC 28.4 g/dL (32.0-36.0); Mean Corpuscular Hemoglobin 22.9 pg (27.0-31.0); Mean Corpuscular Volume 80.7 fL (78.0-98.0); Mean Platelet Volume 9.4 fL (7.4-10.4); Platelet Count 211 10x3/uL (130-400); Red Blood Cell (RBC) Count 4.45 mill/uL (4.70-6.10)
[2023-12-28 04:45] LABS: Anion Gap 9 mmol/L (10-20); BUN (Urea Nitrogen) 30 mg/dL (8.4-25.7); Calc. Creatinine Clearance 113 mL/min (70-130); Calcium 8.8 mg/dL (7.8-10.44); Carbon Dioxide 32 mmol/L (23-31); Chloride 101 mmol/L (98-107); Estimated GFR 46; Glucose 143 mg/dL (80-115); Potassium 4.2 mmol/L (3.5-5.1); Sodium 138 mmol/L (136-145)
[2023-12-28] MEDS: Furosemide 40 MG (4 mL) VIAL SLOW IVP SCH ×2 (05:35→13:10)
[2023-12-28] MEDS: Levothyroxine Sodium 100 MCG TAB PO SCH (05:36)
[2023-12-28] MEDS: Amiodarone 200 MG TAB PO SCH (08:02)
[2023-12-28] MEDS: Tamsulosin HCl 0.4 MG CAP PO SCH (08:02)
[2023-12-28] MEDS ORDERED: FLU (Fluad Triv) TS24-25 (65UP)/MF59C/PF 45 MCG/0.5 ML Syringe IM ONE (09:00)
[2023-12-28] MEDS ORDERED: Amlodipine 10 MG TAB PO SCH (12:00)
[2023-12-28] MEDS: Amlodipine 10 MG TAB PO SCH (13:09)
[2023-12-28] MEDS: Spironolactone 25 MG TAB PO SCH (17:23)
[2023-12-28] MEDS: Insulin Lispro 100 UNIT/ML 10 ML VIAL SC PRN (20:54)
[2023-12-29 05:52] LABS: #Basophils 0.04 10x3/uL (0.0-0.2); %Basophils 0.4 % (0.0-1.0); %Eosinophils 2.7 % (0.0-10.0); %Monocytes 8.4 % (0.0-10.0); %Neutrophils 82.1 % (42.0-75.0); Hematocrit 38.1 % (42.0-52.0); Hemoglobin 10.8 g/dL (14.0-18.0); Mean Corpuscular HGB CONC 28.3 g/dL (32.0-36.0); Mean Corpuscular Hemoglobin 23.8 pg (27.0-31.0); Mean Corpuscular Volume 83.9 fL (78.0-98.0); Mean Platelet Volume 8.9 fL (7.4-10.4); Platelet Count 195 10x3/uL (130-400); RBC Distribution Width 18.1 % (11.5-14.5); Red Blood Cell (RBC) Count 4.54 mill/uL (4.70-6.10)
[2023-12-29 07:00] LABS: Anion Gap 10 mmol/L (10-20); BUN (Urea Nitrogen) 31 mg/dL (8.4-25.7); Calc. Creatinine Clearance 117 mL/min (70-130); Calcium 9.4 mg/dL (7.8-10.44); Carbon Dioxide 34 mmol/L (23-31); Chloride 97 mmol/L (98-107); Estimated GFR 49; Glucose 130 mg/dL (80-115); Potassium 4.5 mmol/L (3.5-5.1); Sodium 136 mmol/L (136-145)
[2023-12-29 07:43] LABS: Free T4 (Free Thyroxine) 1.56 ng/dL (0.70-1.48)
[2023-12-29] MEDS: Saxagliptin 2.5 MG TAB PO SCH (09:11)
[2023-12-29] MEDS: Amlodipine 10 MG TAB PO SCH (09:11)
[2023-12-29] MEDS: Metolazone 5 MG TAB PO SCH (12:31)
[2023-12-30 04:38] LABS: Anion Gap 11 mmol/L (10-20); BUN (Urea Nitrogen) 32 mg/dL (8.4-25.7); Calc. Creatinine Clearance 120 mL/min (70-130); Calcium 9.4 mg/dL (7.8-10.44); Carbon Dioxide 38 mmol/L (23-31); Chloride 90 mmol/L (98-107); Estimated GFR 51; Glucose 135 mg/dL (80-115); Potassium 3.9 mmol/L (3.5-5.1); Sodium 135 mmol/L (136-145)
[2023-12-30] MEDS: AcetaZOLAMIDE 250 MG TAB PO SCH (20:08)
[2023-12-31 05:42] LABS: Anion Gap 16 mmol/L (10-20); BUN (Urea Nitrogen) 41 mg/dL (8.4-25.7); Calc. Creatinine Clearance 86 mL/min (70-130); Calcium 9.3 mg/dL (7.8-10.44); Carbon Dioxide 39 mmol/L (23-31); Chloride 88 mmol/L (98-107); Estimated GFR 35; Glucose 130 mg/dL (80-115); Magnesium 1.9 mg/dL (1.6-2.6); Sodium 139 mmol/L (136-145)
[2024-01-01] MEDS: diphenhydrAMINE 25 MG CAP PO SCH (00:51)
[2024-01-01] MEDS: traMADol HCl 50 MG TAB PO PRN (00:51)
[2024-01-01 04:54] LABS: Anion Gap 11 mmol/L (10-20); BUN (Urea Nitrogen) 45 mg/dL (8.4-25.7); Calc. Creatinine Clearance 94 mL/min (70-130); Calcium 9.2 mg/dL (7.8-10.44); Carbon Dioxide 36 mmol/L (23-31); Chloride 93 mmol/L (98-107); Estimated GFR 39; Glucose 141 mg/dL (80-115); Magnesium 2.1 mg/dL (1.6-2.6); Potassium 4.1 mmol/L (3.5-5.1); Sodium 136 mmol/L (136-145)
[2024-01-01 05:03] LABS: Phosphorus 4.4 mg/dL (2.3-4.7)
[2024-01-01] MEDS: Empagliflozin 10 MG TAB PO SCH (08:51)
[2024-01-01] MEDS: Fluticasone Propionate Nasal Spray 16 gm Bottle NASAL PRN (21:45)
[2024-01-02] MEDS: diphenhydrAMINE 25 MG CAP PO SCH (04:03)
[2024-01-02 05:02] LABS: Anion Gap 15 mmol/L (10-20); BUN (Urea Nitrogen) 45 mg/dL (8.4-25.7); Calc. Creatinine Clearance 90 mL/min (70-130); Calcium 9.1 mg/dL (7.8-10.44); Carbon Dioxide 33 mmol/L (23-31); Chloride 92 mmol/L (98-107); Estimated GFR 38; Glucose 135 mg/dL (80-115); Potassium 3.7 mmol/L (3.5-5.1); Sodium 136 mmol/L (136-145)
[2024-01-02 09:20] VITALS: TEMP 97.8
[2024-01-02] MEDS: FLU (Fluad Triv) TS24-25 (65UP)/MF59C/PF 45 MCG/0.5 ML Syringe IM ONE (11:53)
[2024-01-02 13:04] VITALS: BP 135/57
== END 2024-01-02 16:55 | disposition home or self-care (01) | DRG 291 ==
LOC: ERS 12:27 → ERHOLD 15:39 → OBSVTOIN 16:24 → 2SW 18:22
PROVIDERS: ADMIT Internal Medicine; ATTEND Family Medicine
PROC: 5A09457 Assistance with Respiratory Ventilation, 24-96 Consecutive Hours, Continuous Positive Airway Pressure (ICD-10-PCS; principal; 2023-12-28)
DX: I13.0 Hypertensive heart and chronic kidney disease with heart failure and stage 1 through stage 4 chronic kidney disease, or unspecified chronic kidney disease (principal); I50.33 Acute on chronic diastolic (congestive) heart failure; J96.21 Acute and chronic respiratory failure with hypoxia; Z68.44 Body mass index [BMI] 60.0-69.9, adult; N17.9 Acute kidney failure, unspecified; E87.3 Alkalosis; E87.1 Hypo-osmolality and hyponatremia; E66.01 Morbid (severe) obesity due to excess calories; E78.5 Hyperlipidemia, unspecified; I48.0 Paroxysmal atrial fibrillation; D63.1 Anemia in chronic kidney disease; E11.22 Type 2 diabetes mellitus with diabetic chronic kidney disease; N18.30 Chronic kidney disease, stage 3 unspecified; N40.0 Benign prostatic hyperplasia without lower urinary tract symptoms; Z98.890 Other specified postprocedural states; Z90.49 Acquired absence of other specified parts of digestive tract; Z88.8 Allergy status to other drugs, medicaments and biological substances
CPT/HCPCS: 36415; 36416; 71045; 80048; 80053; 81001; 83735; 83880; 84100; 84439; 84443; 84481; 84484; 85025; 90653; 93005; 96374; J1815; J1940

== ENCOUNTER 2024-01-14 07:58 | Outpatient (CLI) | payer MEDICARE ==
[2024-01-14] MEDS ORDERED: Iopamidol 370 76% 100 ML VIAL ONE (09:19)
== END 2024-01-14 07:59 | disposition home or self-care (01) ==
LOC: CT 07:58
PROVIDERS: ATTEND Physician Assistant
DX: R91.8 Other nonspecific abnormal finding of lung field (principal)
CPT/HCPCS: 36415; 71260; 82565; Q9967

== ENCOUNTER 2024-05-15 07:58 | Outpatient (CLI) | payer MEDICARE | END 2024-05-15 07:59 | disposition home or self-care (01) | LOC: CT 07:58 | PROVIDERS: ATTEND Urology | DX: N28.1 Cyst of kidney, acquired (principal) | CPT/HCPCS: 36415; 74170; 82565 ==